=== PATIENT | male | born 1965 ===

== ENCOUNTER 2020-08-29 16:40 | Emergency (ER) | payer OTHER ==
[~2020-08-29] VITALS: Ht 180.3 cm; Wt 89.8 kg
[2020-08-29] MEDS ORDERED: FENOFIBRATE134 MG (17:06)
[2020-08-29] MEDS ORDERED: ZOCOR20 MG (17:08)
[2020-08-29] MEDS ORDERED: PROTONIX40 MG (17:08)
== END 2020-08-29 19:52 | disposition home or self-care (01) ==
LOC: ER 16:40
DX: S60.211A Contusion of right wrist, initial encounter (principal); S60.221A Contusion of right hand, initial encounter; W18.39XA Other fall on same level, initial encounter; Y93.89 Activity, other specified; Y92.098 Other place in other non-institutional residence as the place of occurrence of the external cause; Y99.8 Other external cause status